=== PATIENT | female | born 1985 ===

== ENCOUNTER 2023-09-16 09:46 | Outpatient (CLI) | payer BC, MEDICARE, SELFPAY ==
--- NOTE | ~2023-09-16 | MR_ITS ---
MRI of the right ankle Clinical history: Pain Technique: Coronal proton-density and proton-density fat-sat images, axial proton-density and proton- density fat-sat images, and sagittal proton-density and proton-density fat-sat images were acquired. Findings: There is evidence of prior surgery at the distal tibia fibular syndesmosis region, with kajal dence of prior syndesmotic screw is also probable postoperative change at the tip of the lateral mall eolus. There is fusion across the subtalar joint, 2 orthopedic screws traversing to the calcaneus and talus. Scattered postoperative debris present with associated susceptibility artifact. Anterior talo fibular and calcaneal fibular ligaments are poorly delineated. Posterior talofibular and intact. Delt oid ligament is intact. Medial flexor tendons, peroneal tendons, anterior extensor tendons, and Achilles tendon are intact. P ossible prior repair of the peroneus brevis tendon. 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 There is mild degenerative change of the talonavicular articulation. Plantar fascia intact. Normal signal preserved in the sinus Tarsi. No soft tissue mass or fluid colle ction seen. Impression: Postoperative changes, as above, including subtalar fusion, prior syndesmotic repair. Correlate with surgical history. 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 Possible prior The peroneus brevis tendon. Again, correlate with surgical history. Reviewed, dictated and finalized at location . Impression: Postoperative changes, as above, including subtalar fusion, prior syndesmotic r epair. Correlate with surgical history. 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 Possible prior The peroneus brevis tendon. Again, correlate with surgical history.
--- NOTE | ~2023-09-16 | MR_ITS ---
MRI of the right foot CLINICAL HISTORY: Pain TECHNIQUE: Axial T1-weighted and T2 fat-sat images, sagittal T1-weighted and STIR images, and coronal T1-weighted and T2 fat-sat images were performed. FINDINGS: There is a transverse nondisplaced fracture of the mid second metatarsal shaft, with extens steve surrounding marrow edema. This could reflect a completed stress fracture versus acute traumatic f racture. There is surrounding soft tissue edema about the second metatarsal shaft as well. There is severe osteoarthritic change of the first metatarsophalangeal joint, with bony productive ch maddie and reactive marrow edema about the joint as well as joint space narrowing. Remaining joint spac es are intact otherwise. No other marrow signal abnormality is identified. Flexor and extensor tendons are intact. There is a somewhat crescentic fluid collection along the shannon ntar aspect of the hallux sesamoids, which could reflect adventitial bursa formation. No other soft t issue mass or fluid collection evident. Intrinsic musculature of the foot is unremarkable. Visualized plantar fascia is intact. IMPRESSION: Nondisplaced transverse fracture of the second metatarsal shaft, with extensive surrounding marrow an d soft tissue edema. Correlate for completed stress fracture versus acute traumatic fracture. 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 Probable adventitial bursa formation at the plantar aspect of the foot along the hallux sesamoid dale on. Reviewed, dictated and finalized at [facility]. IMPRESSION: Nondisplaced transverse fracture of the second metatarsal shaft, with extensive surrounding marrow and soft tissue edema. Correlate for completed stress fract ure versus acute traumatic fracture. 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 Probable adventitial bursa formation at the plantar aspect of the foot along th e hallux sesamoid region.
== END 2023-09-16 09:47 ==
PROVIDERS: PCP Podiatrist Foot & Ankle Surgery; Visit Provider Podiatrist Foot & Ankle Surgery
DX: S92.324A Nondisplaced fracture of second metatarsal bone, right foot, initial encounter for closed fracture (principal); M81.0 Age-related osteoporosis without current pathological fracture
CPT/HCPCS: 73718; 73721